=== PATIENT | male | born 1980 | race Caucasian/White ===

== ENCOUNTER 2017-10-27 13:30 | Emergency (ER) | payer OTHER ==
[2017-10-27 13:44] VITALS: BP 141/82
--- NOTE | 2017-10-27 14:46 | UC ---
Cardiac HPI - HPI Summary HPI Summary: 36 year old male with a history of anxiety presents with complains of left sided chest pain/pulling. - History of Current Complaint Chief Complaint: UCGeneralIllness Stated Complaint: CHEST PAIN, FATIGUE Time Seen by Provider: 10/27/17 14:46 Hx Obtained From: Patient Onset/Duration: Sudden Onset Initial Severity: Moderate Current Severity: Moderate Chest Pain Location: Left Anterior - Allergy/Home Medications Allergies/Adverse Reactions: Allergies Allergy/AdvReac Type Severity Reaction Status Date / Time No Known Allergies Allergy Verified 10/27/17 13:44 Home Medications: Home Medications NK [No Home Medications Reported] 10/27/17 [History Confirmed 10/27/17] PMH/Surg Hx/FS Hx/Imm Hx Previously Healthy: Yes - Surgical History Surgical History: Yes Surgery Procedure, Year, and Place: testical removal, just one. - Family History Known Family History: Positive: None - Social History Alcohol Use: None Substance Use Type: None Smoking Status (MU): Current Every Day Smoker Have You Smoked in the Last Year: Yes - Immunization History Most Recent Influenza Vaccination: HAS NOT HAD Review of Systems Constitutional: Negative Skin: Negative Eyes: Negative ENT: Negative Respiratory: Negative Cardiovascular: Chest Pain Gastrointestinal: Negative Genitourinary: Negative Motor: Negative Neurovascular: Negative Musculoskeletal: Negative Neurological: Negative Psychological: Negative All Other Systems Reviewed And Are Negative: Yes Physical Exam Triage Information Reviewed: Yes Vital Signs: Initial Vital Signs Temp 37.2 C 10/27/17 13:40 Pulse 101 10/27/17 13:40 Resp 18 10/27/17 13:40 BP 141/82 10/27/17 13:40 Pulse Ox 99 10/27/17 13:40 Vital Signs Reviewed: Yes Eye Exam: Normal ENT Exam: Normal Dental Exam: Normal Neck exam: Normal Neck: Positive: 1 Respiratory Exam: Normal Cardiovascular Exam: Normal Abdominal Exam: Normal Musculoskeletal Exam: Normal Neurological Exam: Normal Psychological Exam: Normal Skin Exam: Normal - Clinical Impression Provider Diagnoses: left sided chest pain. anxiety Discharge - Discharge Plan Condition: Stable Disposition: OTHER Discharge Disposition Comment: patient referred to the er for left sided chest pain Patient Education Materials: Chest Pain (ED) Referrals: Rodrick Swartz MD [Primary Care Provider] - Additional Instructions: patient suggested to go to the er for chest pain.
[2017-10-27] MEDS ORDERED: Aspirin Low Dose CHEW TAB* 81 MG ONE (15:05)
[2017-10-28] MEDS ORDERED: Aspirin Low Dose CHEW TAB* 81 MG PO SCH (09:00)
== END 2017-10-27 15:05 ==
LOC: UCCORT 13:30
DX: R07.9 Chest pain, unspecified (principal); F17.210 Nicotine dependence, cigarettes, uncomplicated; F41.9 Anxiety disorder, unspecified
CPT/HCPCS: 93005; 99212; A9270-GY; G0463

== ENCOUNTER 2017-11-26 08:09 | Emergency (ER) | payer OTHER ==
[2017-11-26 08:50] VITALS: BP 133/70
[2017-11-26] MEDS ORDERED: Ondansetron ODT TAB* 4 MG PO ONE (09:02)
--- NOTE | 2017-11-26 09:08 | UC ---
Abdominal Pain Male HPI - HPI Summary HPI Summary: nausea and vomiting x 5 days + abdominal pain / bloating , + diarrhea no fever, + chills, + lightheaded - History of Current Complaint Chief Complaint: UCAbdominalPain Stated Complaint: STOMACH/GASTRO HEADACHE DIZZY Time Seen by Provider: 11/26/17 08:45 Hx Obtained From: Patient Onset/Duration: Gradual Onset, Lasting Days - 5, Still Present Severity Initially: Moderate Severity Currently: Moderate Location: Diffuse Character: Aching, Cramping Aggravating Factor(s): Food Alleviating Factor(s): Nothing Associated Signs And Symptoms: Positive: Decreased Appetite, Nausea, Vomiting, Diarrhea. Negative: Diaphoresis, Fever, Cough, Chest Pain, Dizzy, Back Pain, Constipation, Blood in Stool, Urinary Symptoms, Penile Discharge - Allergies/Home Medications Allergies/Adverse Reactions: Allergies Allergy/AdvReac Type Severity Reaction Status Date / Time Bee Venom Allergy Swelling Verified 11/26/17 08:50 Home Medications: Home Medications Bismuth Subsalicylate [Pepto Bismol] 262 mg PO QID PRN 11/26/17 [History Confirmed 11/26/17] PMH/Surg Hx/FS Hx/Imm Hx Cancer History: Other - testicular ca Other Cancer History: testicular ca - Surgical History Surgical History: Yes Surgery Procedure, Year, and Place: testical removal,right, 2007. - Family History Known Family History: Positive: None Negative: Diabetes - Social History Alcohol Use: None Alcohol Amount: stopped ETOH in past month 10/2017 Substance Use Type: None Smoking Status (MU): Heavy Every Day Tobacco Smoker Have You Smoked in the Last Year: Yes - Immunization History Most Recent Influenza Vaccination: HAS NOT HAD Review of Systems Constitutional: Fatigue Skin: Negative Eyes: Negative ENT: Negative Respiratory: Negative Cardiovascular: Negative Gastrointestinal: Abdominal Pain, Vomiting, Diarrhea Is Patient Immunocompromised?: No All Other Systems Reviewed And Are Negative: Yes Physical Exam Triage Information Reviewed: Yes Appearance: Ill-Appearing, Pain Distress Vital Signs: Initial Vital Signs Temp 98.6 F 11/26/17 08:37 Pulse 77 11/26/17 08:37 Resp 16 11/26/17 08:37 BP 133/70 11/26/17 08:37 Pulse Ox 100 11/26/17 08:37 Vital Signs Reviewed: Yes Eyes: Positive: Conjunctiva Clear ENT: Positive: Normal ENT inspection, Hearing grossly normal, Pharynx normal, TMs normal Neck: Positive: Supple, Nontender, No Lymphadenopathy Respiratory: Positive: Chest non-tender, Lungs clear, Normal breath sounds Cardiovascular: Positive: RRR, No Murmur, Pulses Normal Abdomen Description: Positive: Soft, Other: - diffuse abdominal tenderness. Negative: CVA Tenderness (R), CVA Tenderness (L), Distended, Guarding Bowel Sounds: Positive: Present Musculoskeletal Exam: Normal Skin Exam: Normal Abd Pain Male Course/Dx - Differential Dx/Clinical Impression Provider Diagnoses: Gastroenteritis Discharge - Discharge Plan Condition: Stable Disposition: HOME Prescriptions: Ondansetron [Zofran 8 MG Odt] 8 mg PO Q8H PRN #9 tab PRN Reason: Nausea/Vomiting Patient Education Materials: Gastroenteritis (ED) Forms: *Work Release Referrals: Rodrick Swartz MD [Primary Care Provider] - 5 Days
== END 2017-11-26 09:13 | disposition home or self-care (01) ==
LOC: UCCORT 08:09
DX: K52.9 Noninfective gastroenteritis and colitis, unspecified (principal); R53.83 Other fatigue; Z91.030 Bee allergy status; Z85.47 Personal history of malignant neoplasm of testis; F17.210 Nicotine dependence, cigarettes, uncomplicated
CPT/HCPCS: 99212; A9270-GY; G0463